=== PATIENT | female | born 1960 | race Caucasian/White ===

== ENCOUNTER 2024-01-13 07:41 | Day surgery (SDC) | payer SELFPAY ==
[2024-01-06 15:24] VITALS: BMI 23.5
[2024-01-13] MEDS ORDERED: ONDANSETRON 4 MG/2 ML VIAL ONE (08:32)
[2024-01-13] MEDS ORDERED: DEXAMETHASONE SOD PHOSPHATE 4 MG/1 ML VIAL ONE (08:32)
[2024-01-13] MEDS ORDERED: ceFAZolin SODIUM 1 GM VIAL ONE ×2 (08:32→09:26)
[2024-01-13] MEDS ORDERED: MIDAZOLAM HCL 2 MG/2 ML SINGLE DOSE VIAL ONE (08:33)
[2024-01-13] MEDS ORDERED: PROPOFOL 40 ML ONE ×2 (08:33→11:14)
[2024-01-13] MEDS ORDERED: LIDOCAINE 1%/EPI 1:100000 (20 ML MULTI DOSE VIAL) ONE ×2 (09:26→09:48)
[2024-01-13] MEDS ORDERED: POVIDONE-IODINE 5% OPHTHALMIC PREP 30 ML SOLUTION ONE ×2 (09:26→11:22)
[2024-01-13] MEDS ORDERED: GUM MASTIC/STORAX/MSAL/ALCOHOL 1 DRP DROPSBTL MC ONE (09:26)
[2024-01-13] MEDS ORDERED: TETRACAINE 0.5% OPHTH SOLN 2 ML BOTTLE ONE (09:26)
[2024-01-13] MEDS ORDERED: ERYTHROMYCIN 0.5% OPHTHALMIC OINTMENT 3.5 GM TUBE ONE (09:26)
[2024-01-13] MEDS ORDERED: PROPOFOL 20 ML ONE ×2 (10:34→10:55)
[2024-01-13] MEDS ORDERED: PROPOFOL 60 ML ONE (11:35)
[2024-01-13] MEDS ORDERED: HYDROmorphone HCL/PF 1 MG/ML VIAL ONE (12:10)
[2024-01-13] MEDS ORDERED: ONDANSETRON 4 MG/2 ML VIAL IVPUSH PRN (13:33)
[2024-01-13] MEDS ORDERED: LACTATED RINGERS SOLUTION 1,000 ML IV SCH (13:45)
[2024-01-13 15:08] VITALS: TEMP 97.9
[2024-01-13 16:55] VITALS: RESP 18
[2024-01-13 16:57] VITALS: BP 158/74; PULSE 96
== END 2024-01-13 15:20 | disposition home or self-care (01) ==
LOC: FASU 07:41
PROVIDERS: ATTEND Ophthalmology
PROC: 080N0ZZ Alteration of Right Upper Eyelid, Open Approach (ICD-10-PCS; 2024-01-13)
PROC: 080P0ZZ Alteration of Left Upper Eyelid, Open Approach (ICD-10-PCS; 2024-01-13)
PROC: 080Q0ZZ Alteration of Right Lower Eyelid, Open Approach (ICD-10-PCS; 2024-01-13)
PROC: 080R0ZZ Alteration of Left Lower Eyelid, Open Approach (ICD-10-PCS; principal; 2024-01-13 10:16)
DX: H02.831 Dermatochalasis of right upper eyelid (principal); H02.832 Dermatochalasis of right lower eyelid; H02.834 Dermatochalasis of left upper eyelid; H02.835 Dermatochalasis of left lower eyelid
CPT/HCPCS: 82962; 94760